=== PATIENT | male | born 1985 | race Caucasian/White ===

== ENCOUNTER 2016-06-21 13:19 | Emergency (ER) | payer SELFPAY ==
[~2016-06-21] VITALS: Ht 177.8 cm; Wt 66.2 kg
[2016-06-21 13:31] VITALS: BP 148/95
[2016-06-21 13:54] LABS: HEMATOCRIT 44.7 % (38.0-50.0); MCH 34.5 PG (29.0-34.0); MCHC 35.3 G/DL (30.0-36.0); MCV 97.6 FL (86-99); MEAN PLAT.VOLUME 8.9 uM^3 (9.0-12.4); PLATELET COUNT 172 K/uL (156-360); RBC DIS.WIDTH-CV 13.2 % (11.8-14.6); RBC DIS.WIDTH-SD 46.3 % (39-53); RED BLOOD COUNT 4.58 M/uL (4.00-5.50)
[2016-06-21 14:06] LABS: CHLORIDE 107 mEq/L (99-109); POTASSIUM 4.7 mEq/L (3.7-5.4); SODIUM 140 mEq/L (136-147)
[2016-06-21 14:09] LABS: GLUCOSE 119 mg/dL (70-99)
[2016-06-21 14:10] LABS: ANION GAP 7 MEQ/L (2-14)
[2016-06-21 14:11] LABS: TOTAL BILIRUBIN 0.5 mg/dL (0.0-1.0)
[2016-06-21 14:12] LABS: ALKALINE PHOSPHATASE 122 IU/L (3-129)
[2016-06-21 14:13] LABS: UREA NITROGEN (BUN) 13 mg/dL (9-23)
[2016-06-21 14:15] LABS: GFR ESTIMATE (CALCULATED) > 59 mL/min/
[2016-06-21 14:16] LABS: LIPASE 17 U/L (1.0-51.0)
== END 2016-06-21 15:55 | disposition left against medical advice (07) ==
LOC: EME 13:19
DX: R07.81 Pleurodynia (principal); R11.2 Nausea with vomiting, unspecified; Z53.21 Procedure and treatment not carried out due to patient leaving prior to being seen by health care provider
CPT/HCPCS: 80053; 81003; 83690; 85027; 99281

== ENCOUNTER 2017-11-11 13:23 | Emergency (ER) | payer SELFPAY ==
[~2017-11-11] VITALS: Ht 177.8 cm; Wt 61.6 kg
[2017-11-11] MEDS ORDERED: PERCOCET 5/31 TABLET PO (15:17)
[2017-11-11 15:50] VITALS: BP 124/96
== END 2017-11-11 15:51 | disposition home or self-care (01) ==
LOC: EME 13:23
PROC: 2W3EX1Z Immobilization of Right Hand using Splint (ICD-10-PCS; principal; 2017-11-11)
PROC: 0PSTXZZ Reposition Right Finger Phalanx, External Approach (ICD-10-PCS; principal; 2017-11-11)
DX: S62.616A Displaced fracture of proximal phalanx of right little finger, initial encounter for closed fracture (principal); W10.9XXA Fall (on) (from) unspecified stairs and steps, initial encounter
CPT/HCPCS: 73130; 73140; 99281; 99283